=== PATIENT | female | born 1960 | race Caucasian/White ===

== ENCOUNTER 2017-02-17 17:29 | Emergency (ER) | payer MEDICAID, OTHER ==
[~2017-02-17] VITALS: Wt 64.7 kg
[2017-02-17] MEDS ORDERED: TYL500 PO (19:44)
--- NOTE | 2017-02-17 19:51 | ERD ---
ER Documentation Chief Complaint Chief Complaint THROAT PAIN, FEVER X3 DAYS HPI This is a 56-year-old female presents today with a sore throat with fever for the last 3 days. Patient states that sore throat is severe and is worse whenever she swallows. She noticed white dots in the back of her throat. She denies any difficulty in swallowing, breathing. She denies any chest pain or shortness of breath. ROS 12 point review of systems was done, all negative except per HPI. Medications Home Meds Active Scripts Acetaminophen* (Tylenol*) 500 Mg Tab, 500 MG PO Q4H Y for PAIN for 3 Days, TAB Prov:CONCHITA SANDY C 02/17/17 Allergies Allergies: Coded Allergies: hydrocodone (Unverified Allergy, Unknown, vomiting, 02/17/17) Pt thinks has allergy to [place] PMhx/Soc Medical and Surgical Hx: pt denies Surgical Hx History of Surgery: No Anesthesia Reaction: No Hx Neurological Disorder: No Hx Respiratory Disorders: No Hx Cardiac Disorders: No Hx Psychiatric Problems: No Hx Miscellaneous Medical Probl: Yes (prediabietes) Hx Alcohol Use: No Hx Substance Use: No Hx Tobacco Use: No Physical Exam Vitals Vital Signs Date Time Temp Pulse Resp B/P Pulse Ox O2 Delivery O2 Flow Rate FiO2 02/17/17 17:32 99.2 84 18 112/57 98 Physical Exam GENERAL: The patient is well-developed, well-nourished, in no acute distress. NECK: Cervical spine is non tender with no step off. Supple, no nuchal rigidity HEENT: Atraumatic. Pupils equal, round and reactive to light. Extraocular muscles are grossly intact. Conjunctivae pink, no discharge. Bilateral tympanic membranes are clear with no evidence of erythema, effusion or dulling of the light reflex. Tonsilar erythema or tonsillar exudates, no uvular deviation no kissing tonsils. RESPIRATORY: Clear to auscultation bilaterally. There are no rales, wheezes or rhonchi. HEART: Regular rate and rhythm. No murmurs, clicks, rubs or gallops. NEUROLOGIC: Alert and oriented. Cranial nerves II through XII are intact. SKIN: There is no rash. The skin is warm and dry. Results 24 hrs Current Medications Medications (Trade) Dose Ordered Sig/Rl Route PRN Reason Start Time Stop Time Status Last Admin Dose Admin Penicillin G Benzathine (Bicillin La) 1,200,000 units ONCE ONCE IM 02/17/17 20:00 02/17/17 20:01 Dexamethasone (Decadron) 10 mg ONCE ONCE PO 02/17/17 20:00 02/17/17 20:01 Acetaminophen (Tylenol Tab) 650 mg ONCE ONCE PO 02/17/17 20:00 02/17/17 20:01 Procedures/MDM This is a 56-year-old female presents to the ER with sore throat and fevers. She does have strep throat a physical examination she was given a shot of penicillin here in the ER without any complications and then dose of Decadron. She will be sent home with Tylenol. Patient is afebrile and well-appearing suspicion for retropharyngeal abscess or peritonsillar abscess is low. She is to follow-up with her primary care doctor within 1-2 days or return to ER sooner if symptoms worsen. My medical decision making shared with the patient she understands and agrees with plan. Departure Diagnosis: Primary Impression: Strep throat Condition: Stable Patient Instructions: Strep Throat Additional Instructions: Call your primary care doctor TOMORROW for an appointment during the next 1-2 days.See the doctor sooner or return here if your condition worsens before your appointment time. CONCHITA SANDY Feb 17, 2017 19:51
[2017-02-17] MEDS ORDERED: PENICILLIN G BENZ 1.2 MIL UNIT SYG IM ONE (20:00)
[2017-02-17] MEDS ORDERED: DEXAMETHASONE 10 MG/ML 1 ML INJ PO ONE (20:00)
[2017-02-17] MEDS ORDERED: ACETAMINOPHEN 325 MG TAB PO ONE (20:00)
[2017-02-17 20:15] VITALS: BP 112/55; PULSE 80; RESP 16; TEMP 98.4
== END 2017-02-17 20:17 | disposition home or self-care (01) ==
LOC: FTE 17:29
DX: J02.0 Streptococcal pharyngitis (principal)
CPT/HCPCS: 96372; J0561; J1100; Z7502; Z7610

== ENCOUNTER 2017-11-10 15:10 | Emergency (ER) | END 2017-11-10 16:39 | disposition home or self-care (01) ==

== ENCOUNTER 2018-06-23 06:09 | Day surgery (SDC) | payer OTHER ==
[~2018-06-23] VITALS: Ht 154.9 cm; Wt 63.8 kg
[~2018-06-23 06:09] MED LIST: TYL500 PO
[2018-06-23 07:18] VITALS: Ht 154.9 cm; Wt 63.8 kg
[2018-06-23 07:41] VITALS: BP 110/56; PULSE 64; RESP 18
[2018-06-23] MEDS ORDERED: NAPROXEN PO (07:53)
[2018-06-23] MEDS ORDERED: SIMV5TAB14 PO (07:53)
[2018-06-23] MEDS ORDERED: LEVO50TA7 PO (07:53)
[2018-06-23] MEDS ORDERED: CETI5TAB8 PO (07:53)
[2018-06-23] MEDS ORDERED: IBUPROFEN PO (07:53)
[2018-06-23] MEDS ORDERED: OXYB5TAB7 PO (07:53)
[2018-06-23] MEDS ORDERED: [UNRECOGNIZED DRUG - OTHER] PO (07:53)
[2018-06-23] MEDS ORDERED: CYCLOBENZAPRINE PO (07:53)
[2018-06-23] MEDS ORDERED: [UNRECOGNIZED DRUG - OTHER] PO (07:53)
[2018-06-23] MEDS ORDERED: [UNRECOGNIZED DRUG - OTHER] PO (07:53)
[2018-06-23 09:23] VITALS: BP 126/78; PULSE 62; RESP 13
[2018-06-23] MEDS ORDERED: FENTAnyl 50 MCG/ML VIAL ONE (09:25)
[2018-06-23] MEDS ORDERED: MIDAZOLAM 1 MG/ML 2 ML INJ ONE (09:25)
== END 2018-06-23 10:00 | disposition home or self-care (01) ==
LOC: GIL 06:09
PROVIDERS: ATTEND Internal Medicine Gastroenterology
DX: Z12.11 Encounter for screening for malignant neoplasm of colon (principal); K64.8 Other hemorrhoids
CPT/HCPCS: 45378; J2250; J3010; Z7610